=== PATIENT | female | born 1985 | race Hispanic/Latino ===

== ENCOUNTER → 2017-09-09 | Outpatient (CLI) | payer OTHER ==
[2017-09-09 08:45] LABS: BASOPHILS % (AUTO) 0.5 % (0.0-5.0); EOSINOPHILS % (AUTO) 0.5 % (0.0-8.0); HEMATOCRIT 35.6 % (36-48); LYMPHOCYTES % (AUTO) 24.7 % (21.0-51.0); MEAN CORPUSCULAR HEMOGLOBIN 31.9 pg (27.0-33.0); MEAN CORPUSCULAR VOLUME 91.2 fL (79-99); MONOCYTES % (AUTO) 6.3 % (3.0-13.0); PLATELET COUNT (AUTO) 267 K/uL (130-400); RED CELL DISTRIBUTION WIDTH 13.2 % (11.0-15.5); WHITE BLOOD COUNT (AUTO) 10.8 K/uL (4.8-10.8)
== END | disposition home or self-care (01) ==
LOC: LAB 07:25
PROVIDERS: ATTEND Obstetrics & Gynecology
DX: Z36.9 Encounter for antenatal screening, unspecified (principal)
CPT/HCPCS: 36415; 82950; 85025

== ENCOUNTER → 2017-09-12 | Outpatient (CLI) | payer OTHER | END | disposition home or self-care (01) | LOC: RAH 15:56 | PROVIDERS: ATTEND Obstetrics & Gynecology | DX: Z34.90 Encounter for supervision of normal pregnancy, unspecified, unspecified trimester (principal); Z3A.30 30 weeks gestation of pregnancy | CPT/HCPCS: 76805 ==

== ENCOUNTER 2017-11-10 03:42 | Inpatient (IN) | payer OTHER ==
[~2017-11-10] VITALS: Ht 152.4 cm; Wt 68.0 kg
[2017-11-10] MEDS ORDERED: LACTATED RINGERS 1000ML 1,000 ML IV PRN (04:20)
[2017-11-10 04:25] LABS: APPEARANCE,URINE Clear (CLEAR); BILIRUBIN,URINE Negative (NEGATIVE); COLOR,URINE Yellow (YELLOW); GLUCOSE, URINE (UA) Negative (NEGATIVE); KETONES,URINE Trace mg/dL (NEGATIVE); LEUKOCYTE ESTERASE ,URINE Negative (NEGATIVE); NITRATE,URINE Negative (NEGATIVE); OCCULT BLOOD,URINE Negative (NEGATIVE); PH,URINE 6.5 (5.0-8.0); PROTEIN,URINE POS 2+ (NEGATIVE); UROBILINOGEN,URINE 0.2 mg/dL (0.2-1.0)
[2017-11-10 04:31] LABS: BASOPHILS % (AUTO) 0.3 % (0.0-5.0); EOSINOPHILS % (AUTO) 0.2 % (0.0-8.0); HEMATOCRIT 40.5 % (36-48); LYMPHOCYTES % (AUTO) 34.1 % (21.0-51.0); MEAN CORPUSCULAR HEMOGLOBIN 29.4 pg (27.0-33.0); MEAN CORPUSCULAR HGB CONC 33.6 g/dL (32.0-36.0); MEAN CORPUSCULAR VOLUME 87.5 fL (79-99); NEUTROPHILS % (AUTO) 57.4 % (40.0-77.0); PLATELET COUNT (AUTO) 152 K/uL (130-400); RED BLOOD CELL COUNT(AUTO) 4.63 MIL/uL (4.00-5.50); RED CELL DISTRIBUTION WIDTH 13.5 % (11.0-15.5); WHITE BLOOD COUNT (AUTO) 9.5 K/uL (4.8-10.8)
[2017-11-10] MEDS ORDERED: LACTATED RINGERS 1000ML 1,000 ML IV ONE (04:33)
[2017-11-10] MEDS ORDERED: OXYTOCIN 10 USP UNITS/ML ONE ×2 (04:34→10:05)
[2017-11-10 04:37] LABS: BACTERIA,URINE Few /HPF (None Seen); RBC,URINE None Seen /HPF (0-1); SQUAMOUS EPITHELIAL CELL,UR 0-2 /HPF (0-2); WBC,URINE 0-1 /HPF (0-1)
[2017-11-10 04:37] LABS: CREATININE 0.7 mg/dL (0.5-1.5); POTASSIUM 3.9 mmol/L (3.5-5.1)
[2017-11-10 04:39] LABS: INR 0.88 (0.85-1.15); PARTIAL THROMBOPLASTIN TIME 27.4 SEC (26.3-35.5); PROTHROMBIN TIME 9.3 SEC (9.6-11.6)
[2017-11-10] MEDS ORDERED: MAGNESIUM 4 GM IV ONE (04:42)
[2017-11-10 04:43] LABS: ALBUMIN 2.7 g/dL (3.5-5.0); BILIRUBIN,TOTAL 0.2 mg/dL (0.2-1.0); TOTAL PROTEIN, SERUM 7.3 g/dL (6.0-8.3)
[2017-11-10] MEDS ORDERED: LANOLIN 30GM OINTMENT TP PRN (05:45)
[2017-11-10] MEDS ORDERED: WITCH HAZEL 1 PAD TP PRN (05:45)
[2017-11-10] MEDS ORDERED: OXYTOCIN-LR 20 UNITS/1000 ML 1,000 ML IV SCH (05:45)
[2017-11-10] MEDS ORDERED: BENZOCAINE/LANOLIN/ALOE VERA 60 ML AEROSOL TP PRN (05:45)
[2017-11-10] MEDS ORDERED: ACETAMINOPHEN-CODEINE 300/30MG TAB PO PRN (05:45)
[2017-11-10] MEDS: IBUPROFEN 800 MG TAB PO PRN ×3 (06:04→22:01)
[2017-11-10] MEDS: DOCUSATE SODIUM 100 MG CAP PO SCH ×2 (09:18→20:44)
[2017-11-10 11:24] VITALS: BP 129/85
[2017-11-10 15:35] VITALS: BP 129/73
[2017-11-10 20:35] VITALS: BP 143/89
[2017-11-10 23:20] VITALS: BP 124/77
[2017-11-11 03:10] VITALS: BP 134/85
[2017-11-11 07:30] VITALS: BP 120/76
[2017-11-11] MEDS: DOCUSATE SODIUM 100 MG CAP PO SCH (08:16)
[2017-11-11] MEDS: IBUPROFEN 800 MG TAB PO PRN (08:22)
[2017-11-11 11:35] VITALS: BP 135/80
== END 2017-11-11 11:40 | disposition home or self-care (01) | DRG 775 ==
LOC: EDH 03:42 → LDH 03:52 → OBSVTOIN 03:52 → WSH 13:00
PROVIDERS: ADMIT Obstetrics & Gynecology; ATTEND Obstetrics & Gynecology
PROC: 0KQM0ZZ Repair Perineum Muscle, Open Approach (ICD-10-PCS; principal; 2017-11-10)
PROC: 10E0XZZ Delivery of Products of Conception, External Approach (ICD-10-PCS; 2017-11-10)
PROC: 3E0R3BZ Introduction of Anesthetic Agent into Spinal Canal, Percutaneous Approach (ICD-10-PCS; 2017-11-10)
PROC: 00HU33Z Insertion of Infusion Device into Spinal Canal, Percutaneous Approach (ICD-10-PCS; 2017-11-10)
DX: O70.1 Second degree perineal laceration during delivery (principal); Z37.0 Single live birth; Z3A.38 38 weeks gestation of pregnancy
CPT/HCPCS: 36415; 80053; 81001; 84550; 85025; 85384; 85610; 85730; J2590; J3475; J7120

== ENCOUNTER → 2021-02-21 | Outpatient (CLI) | payer OTHER | END | disposition home or self-care (01) | LOC: LAB 10:00 | PROVIDERS: ATTEND Internal Medicine Cardiovascular Disease | DX: Z20.822 Contact with and (suspected) exposure to COVID-19 (principal) | CPT/HCPCS: 87635; C9803 ==

== ENCOUNTER → 2023-10-28 | Outpatient (CLI) | payer OTHER | END | disposition home or self-care (01) | LOC: LAB 09:57 | PROVIDERS: ATTEND Hospitalist | DX: Z20.822 Contact with and (suspected) exposure to COVID-19 (principal) | CPT/HCPCS: 87426 ==

== ENCOUNTER → 2024-09-23 | Outpatient (CLI) | payer OTHER | END | disposition home or self-care (01) | LOC: LAB 10:35 | PROVIDERS: ATTEND Obstetrics & Gynecology | DX: Z01.419 Encounter for gynecological examination (general) (routine) without abnormal findings (principal) | CPT/HCPCS: 88175 ==

== ENCOUNTER → 2024-10-08 | Outpatient (CLI) | payer OTHER ==
--- NOTE | 2024-10-12 09:56 | HMCIMG ---
MAMMO SCREENING BILATERAL HISTORY: Screening mammogram. COMPARISON: None TECHNIQUE: Bilateral screening mammogram with CAD was performed with craniocaudal and mediolateral oblique projections. FINDINGS: The breasts are extremely dense which lowers the sensitivity of mammogram. If needed, MRI may be performed for complete evaluation. There is no evidence of a dominant mass, or suspicious microcalcification. There is no evidence of nipple retraction or skin thickening. IMPRESSION: 1. No dominant mass is seen to suggest a malignant process. Dense breasts. Patient was entered into a reminder system with a target due date for their next mammogram. BI-RADS: CATEGORY 2: BENIGN FINDINGS Recommend monthly self breast exam as well as annual clinical examination. A negative x-ray should not delay biopsy if a dominant or clinically suspicious mass is present, since 8-10% of cancers are not identified by mammography. Dense breasts particularly, may obscure an underlying neoplasm. Some of these may be detected clinically and therefore, clinical examination is an essential part of breast evaluation.
== END | disposition home or self-care (01) ==
LOC: RAH 14:51
PROVIDERS: ATTEND Obstetrics & Gynecology
DX: Z12.31 Encounter for screening mammogram for malignant neoplasm of breast (principal)
CPT/HCPCS: 77067